=== PATIENT | female | born 1940 ===

== ENCOUNTER 2024-09-29 07:35 | Day surgery (SDC) | payer MEDICARE, BC, SELFPAY ==
[2024-09-04 13:34] VITALS: BMI 28.4
[2024-09-04 13:56] LABS: Hematocrit 40.5 % (37.0-47.0); Hemoglobin 13.4 g/dL (12.0-16.0); Mean Corp Hgb Conc. 33.1 g/dL (33.0-37.0); Mean Corpuscular Hgb 29.2 pg (27.0-31.0); Mean Corpuscular Volume 88.2 fL (81.0-99.0); Mean Platelet Volume 9.7 fL (7.4-10.4); Platelet Count 227 10^3/uL (130-400); Red Blood Cell Count 4.59 10^6/uL (4.20-5.40); Red Cell Dist. Width 13.7 % (11.5-14.5); White Blood Cell Count 8.3 10^3/uL (4.8-10.8)
[2024-09-04 14:15] LABS: ALT (SGPT) 19 U/L (0-35); AST (SGOT) 26 U/L (14-36); Albumin 4.4 g/dl (3.5-5.0); Alkaline Phosphatase 59 U/L (38-126); Blood Urea Nitrogen 14 mg/dl (7-17); Calcium 9.8 mg/dl (8.4-10.2); Carbon Dioxide 34 mmol/L (22-30); Chloride 97 mmol/L (98-107); Estimated Creatinine Clearance 70 ml/min; Glucose 109 mg/dl (70-99); Potassium 4.4 mmol/L (3.5-5.1); Sodium 136 mmol/L (135-145); Total Bilirubin 0.8 mg/dl (0.2-1.3); Total Protein 6.9 g/dl (6.3-8.2); eGFR > 60.00
[2024-09-05 09:37] LABS: Glycohemoglobin (HgbA1c) 6.1 % (4.0-5.6)
--- NOTE | 2024-09-15 13:11 | VNURNOTE ---
Patient is scheduled for an elective L TKA on 09/29/23- she is a same day patient with Dr Escalona. Spoke with patient prior to surgery. Introduced role of [facility] Liaison. Patient reports that she lives with spouse in a MULTI story home. There is an
elevator.
There are 1 step to enter.
She has a raised toilet seat, cane and rolling walker.
PCP is Dr Cirilo Taylor.
Discussed [facility] joint protocol and post surgical plans.
Reviewed that she will have [facility] services initially and will then start outpatient PT.
Patient selects [facility] for home care needs and will go to and outpt PT at [facility] for outpatient PT. Outpt PT date TBD.
Patient is in agreement with plan and states that her spouse will be home with her. Advised to bring RW day of surgery.
Plan: [facility] per [facility] joint protocol then outpt PT TBD
[2024-09-23 15:53] VITALS: BMI 28.4
[2024-09-29] VITALS (14 sets, daily range): BP systolic 108–147; BP diastolic 57–725; PULSE 55; O2SAT 95
[2024-09-29] MEDS: TYLENOL 650 MG PO (07:54)
[2024-09-29] MEDS: CELEBREX 200 MG PO (07:54)
--- NOTE | 2024-09-29 07:54 | W.DS.TRANS ---
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
-
Discharge Instructions:
Sleep Apnea Risk Low
Discharge Diagnosis/Procedures L TKA Dr. Escalona 09/29/24
Diet As tolerated
Activity With Walker,As tolerated
Driving Restrictions No driving
Bathing Restrictions OK to Shower
Other Services PT
Instructions:
Stand-Alone Forms: SDS Total Hip and Knee D/C
Changes to Home Medications: Yes
Discharge Medications:
DC Medications w/original date entered in [employer]
alpha lipoic acid 600 mg tablet 600 mg PO DAILY 09/23/24
amoxicillin 500 mg tablet 2,000 mg PO DIRECTED PRN pre dental work 09/23/24
aspirin 81 mg chewable tablet 81 mg PO DAILY 09/23/24
atorvastatin 40 mg tablet 40 mg PO DAILY 09/23/24
cholecalciferol (vitamin D3) 25 mcg (1,000 unit) chewable tablet (Vitamin D3) 25 mcg PO DAILY 09/23/24
cyanocobalamin (vitamin B-12) 50 mcg tablet 50 mcg PO DAILY 09/23/24
gabapentin 100 mg capsule 100 mg PO TID 09/23/24
hydrochlorothiazide 12.5 mg tablet 12.5 mg PO DAILY 09/23/24
lidocaine 1 dose topical PRN PRN knee pain 09/23/24
losartan 50 mg tablet 50 mg PO DAILY 09/23/24
ropinirole 1 mg tablet 1 mg PO .6XDAILY 09/23/24
vitamin E 100 unit PO DAILY 09/23/24
acetaminophen 650 mg tablet,extended release 1,300 mg (2 x 650 mg) PO TID #0 tabs 09/29/24
aspirin 325 mg tablet 325 mg PO DAILY blood clot prevention #1 tab 09/29/24
celecoxib 100 mg capsule 100 mg PO BID Anti-inflammatory #14 caps 09/29/24
dexamethasone 4 mg tablet 4 mg PO BID inflammation #6 tabs 09/29/24
docusate sodium 100 mg capsule (Colace) 100 mg PO BID stool softner #1 cap 09/29/24
magnesium hydroxide 400 mg/5 mL oral suspension (Milk of Magnesia) 30 ml PO HS PRN Constipation #1 mL 09/29/24
ondansetron 4 mg disintegrating tablet 4 mg PO Q6H PRN n/v #20 tabs 09/29/24
oxycodone 5 mg tablet 5 mg PO Q6H PRN 1 tab moderate pain, 2 tabs severe pain #30 tabs 09/29/24
sennosides 8.6 mg tablet (Senokot) 17.2 mg (2 x 8.6 mg) PO BID laxative #2 tabs 09/29/24
Home Medication Changes
acetaminophen 650 mg tablet,extended release 1,300 mg (2 x 650 mg) PO TID #0 tabs 09/29/24
aspirin 325 mg tablet 325 mg PO DAILY blood clot prevention #1 tab 09/29/24
celecoxib 100 mg capsule 100 mg PO BID Anti-inflammatory #14 caps 09/29/24
dexamethasone 4 mg tablet 4 mg PO BID inflammation #6 tabs 09/29/24
docusate sodium 100 mg capsule (Colace) 100 mg PO BID stool softner #1 cap 09/29/24
magnesium hydroxide 400 mg/5 mL oral suspension (Milk of Magnesia) 30 ml PO HS PRN Constipation #1 mL 09/29/24
ondansetron 4 mg disintegrating tablet 4 mg PO Q6H PRN n/v #20 tabs 09/29/24
oxycodone 5 mg tablet 5 mg PO Q6H PRN 1 tab moderate pain, 2 tabs severe pain #30 tabs 09/29/24
sennosides 8.6 mg tablet (Senokot) 17.2 mg (2 x 8.6 mg) PO BID laxative #2 tabs 09/29/24
Pending Results: No
[2024-09-29] MEDS: NORMOSOL-R/PLASMALYTE-A 1000 IV (08:07)
[2024-09-29] MEDS: ANCEF 5 IV (15:36)
== END 2024-09-29 15:50 | disposition home or self-care (01) ==
LOC: SDS 07:35
PROVIDERS: ATTENDING PHYSICIAN Specialist; FAMILY PHYSICIAN Internal Medicine; REFERRING PHYSICIAN Internal Medicine Cardiovascular Disease
DX: M17.12 Unilateral primary osteoarthritis, left knee (principal)
CPT/HCPCS: 27447; 36415; 73560; 80053; 83036; 85027; 87070; 97116; 97162; C1713; C1776